=== PATIENT | female | born 1960 | race African-American/Black ===

== ENCOUNTER 2017-05-15 11:51 | Emergency (ER) | payer MEDICAID ==
[~2017-05-15] VITALS: Ht 157.5 cm; Wt 67.0 kg
[~2017-05-15 11:51] MED LIST: ACET-3161; ALBU18HF2; ATOR20TA; CALC1TAB58 PO; CHOL200074; DARU600T PO; EPIVIR PO; MONT10TA24 PO; NORV1 PO; SUCR1ORA PO; [UNRECOGNIZED DRUG - CODE] PO
[2017-05-15] MEDS ORDERED: ONDANSETRON HCL 4MG/2ML VIAL IV STA (12:44)
[2017-05-15] MEDS ORDERED: MORPHINE SULFATE 4 MG/ML CPJ (NOT FOR IM USE) IV STA (12:44)
[2017-05-15] MEDS ORDERED: SODIUM CHLORIDE 0.9% 1,000 ML IV ONE ×2 (12:44→23:16)
[2017-05-15 13:34] LABS: BASOPHILS % 0.5 % (0.0-2.0); EOSINOPHILS % 0.7 % (0.0-5.0); HEMATOCRIT. 49.9 % (36.0-48.0); MEAN CORPUSCULAR HEMOGLOBIN 31.9 pg (28.0-32.0); MEAN CORPUSCULAR VOLUME 93.7 fL (81.0-99.0); MEAN PLATELET VOLUME 8.9 fl (7.4-10.4); MONOCYTES % 13.7 % (2.0-8.0); NEUTROPHILS % 68.1 % (40.0-76.0); PLATELET 230 x1000/uL (130-400); RED BLOOD CELL COUNT 5.32 mill/uL (4.2-5.4); RED CELL DISTRIBUTION WIDTH 13.8 % (11.6-14.6)
[2017-05-15 13:38] LABS: INR 1.2
[2017-05-15 13:53] LABS: CARBON DIOXIDE 28 mEq/L (21-32)
[2017-05-15 14:07] LABS: TROPONIN I < 0.02 ng/mL (0.00-0.04)
[2017-05-15 14:27] LABS: CHLORIDE 103 mEq/L (98-107)
[2017-05-15 15:01] LABS: CLARITY URINE CLOUDY (CLEAR); COLOR URINE DARK YELLOW (YELLOW); KETONES URINE TRACE (NEGATIVE); LEUKOCYTE ESTERASE URINE TRACE (NEGATIVE); NITRITE URINE NEGATIVE (NEGATIVE); OCCULT BLOOD URINE 1+ (NEGATIVE); PROTEIN URINE 1+ (NEGATIVE); SPECIFIC GRAVITY URINE 1.021 (1.005-1.030); UROBILINOGEN URINE 0.2 E.U./dL (0.2-1.0)
[2017-05-16 00:58] VITALS: BP 111/66
== END 2017-05-16 01:00 | disposition home or self-care (01) ==
LOC: ER 11:51
DX: T36.95XA Adverse effect of unspecified systemic antibiotic, initial encounter (principal); K57.31 Diverticulosis of large intestine without perforation or abscess with bleeding; K52.1 Toxic gastroenteritis and colitis; J44.9 Chronic obstructive pulmonary disease, unspecified; F17.200 Nicotine dependence, unspecified, uncomplicated; F32.9 Major depressive disorder, single episode, unspecified; Y92.89 Other specified places as the place of occurrence of the external cause
CPT/HCPCS: 36415; 71045; 74176; 80053; 81001; 81025; 83690; 83880; 84484; 85025; 85610; 86850; 86900; 86901; 93005; 99285; J7030; X7700; Z7610

== ENCOUNTER 2017-08-17 00:46 | Emergency (ER) | payer MEDICAID ==
[~2017-08-17] VITALS: Ht 157.5 cm; Wt 68.0 kg
[2017-08-17] MEDS ORDERED: PREDNISONE 20MG TABLET PO STA (01:31)
[2017-08-17] MEDS ORDERED: FAMOTIDINE 20MG TABLET PO ONE (01:45)
[2017-08-17] MEDS ORDERED: DIPHENHYDRAMINE 25MG CAPSULE PO ONE (01:45)
[2017-08-17 05:20] VITALS: BP 140/75
== END 2017-08-17 05:35 | disposition home or self-care (01) ==
LOC: ER 00:46
DX: T78.40XA Allergy, unspecified, initial encounter (principal); F17.200 Nicotine dependence, unspecified, uncomplicated; J44.9 Chronic obstructive pulmonary disease, unspecified; X58.XXXA Exposure to other specified factors, initial encounter
CPT/HCPCS: 99284; J7512; Z7610; Q0163

== ENCOUNTER 2018-04-22 17:19 | Emergency (ER) | payer MEDICAID ==
[~2018-04-22] VITALS: Ht 157.5 cm; Wt 70.0 kg
[2018-04-22 21:40] LABS: EOSINOPHILS % 1.3 % (0.0-5.0); HEMATOCRIT. 45.1 % (36.0-48.0); LYMPHOCYTES % 28.8 % (20.0-50.0); MEAN CORPUSCULAR HEMOGLOBIN 31.3 pg (28.0-32.0); MEAN CORPUSCULAR VOLUME 93.9 fL (81.0-99.0); MEAN PLATELET VOLUME 8.8 fl (7.4-10.4); MONOCYTES % 11.7 % (2.0-8.0); NEUTROPHILS % 57.2 % (40.0-76.0); PLATELET 202 x1000/uL (130-400)
[2018-04-22 21:44] LABS: CHLORIDE 103 mEq/L (98-107); INR 1.1; PROTHROMBIN TIME 10.6 sec (9.1-11.1)
[2018-04-22] MEDS ORDERED: KETOROLAC 15MG/ML VIAL IV ONE (22:30)
[2018-04-22 23:04] LABS: CLARITY URINE CLEAR (CLEAR); COLOR URINE YELLOW (YELLOW); KETONES URINE NEGATIVE (NEGATIVE); LEUKOCYTE ESTERASE URINE NEGATIVE (NEGATIVE); NITRITE URINE NEGATIVE (NEGATIVE); OCCULT BLOOD URINE NEGATIVE (NEGATIVE); PROTEIN URINE 1+ (NEGATIVE); SPECIFIC GRAVITY URINE 1.021 (1.005-1.030)
[2018-04-23 00:38] VITALS: BP 121/82
[2018-04-23] MEDS ORDERED: MORPHINE SULFATE 4 MG/ML CPJ (NOT FOR IM USE) IV ONE (00:45)
== END 2018-04-23 00:46 | disposition home or self-care (01) ==
LOC: ER 17:19
DX: K80.20 Calculus of gallbladder without cholecystitis without obstruction (principal); J44.9 Chronic obstructive pulmonary disease, unspecified; F17.200 Nicotine dependence, unspecified, uncomplicated; M19.90 Unspecified osteoarthritis, unspecified site; Z98.890 Other specified postprocedural states
CPT/HCPCS: 36415; 76705; 80053; 81003; 81025; 83690; 85025; 85610; 96374; 99284; J1885

== ENCOUNTER 2018-09-07 12:20 | Emergency (ER) | payer MEDICAID ==
[~2018-09-07] VITALS: Ht 157.5 cm; Wt 73.0 kg
[2018-09-07] MEDS ORDERED: IBUPROFEN 800MG TABLET PO ONE (18:45)
[2018-09-07] MEDS ORDERED: HYDROCODONE/ACETAMINOPHEN 5/325MG TABLET PO ONE (18:45)
[2018-09-07 19:25] VITALS: BP 150/88
== END 2018-09-07 19:30 | disposition home or self-care (01) ==
LOC: ER 12:20
DX: S16.1XXA Strain of muscle, fascia and tendon at neck level, initial encounter (principal); J44.9 Chronic obstructive pulmonary disease, unspecified; M62.830 Muscle spasm of back; V49.59XA Passenger injured in collision with other motor vehicles in traffic accident, initial encounter; Y93.89 Activity, other specified; Y92.89 Other specified places as the place of occurrence of the external cause; Y99.8 Other external cause status; Z87.891 Personal history of nicotine dependence; Z98.890 Other specified postprocedural states; Z79.899 Other long term (current) drug therapy
CPT/HCPCS: 99283